=== PATIENT | male | born 1960 | race African-American/Black ===

== ENCOUNTER → 2018-10-10 | Outpatient (CLI) | payer OTHER ==
[~2018-10-10] MED LIST: AMARYL2 MG PO; BAYER CHEWABLE81 MG PO; GLUCOPHAGE1000 MG PO; LISINOPRIL2.5 MG PO; NORCO 5-325 TA1 EACH PO; PROAIR HFA8.5 GM IH; TUSSIONEX PENN473 ML PO; VITAMINC500 PO
== END ==
LOC: ULTRA 11:14
DX: E11.621 Type 2 diabetes mellitus with foot ulcer (principal); I73.9 Peripheral vascular disease, unspecified; L97.521 Non-pressure chronic ulcer of other part of left foot limited to breakdown of skin; F17.200 Nicotine dependence, unspecified, uncomplicated

== ENCOUNTER 2018-10-15 12:25 | Inpatient (IN) | payer OTHER ==
[~2018-10-15] VITALS: Ht 180.3 cm; Wt 83.8 kg
[2018-10-15] VITALS (11 sets, daily range): BP systolic 125–151; BP diastolic 78–93
[2018-10-15 12:58] LABS: ABSOLUTE NEUTROPHILS 10.1 thou/uL (1.4-8.2); BASOPHILS 0.7 % (0.0-2.0); EOSINOPHILS 2.3 % (0.0-3.0); HEMATOCRIT 46.2 % (42.0-52.0); HEMOGLOBIN 15.4 gm/dL (14.0-18.0); LYMPHOCYTES 19.3 % (24.0-44.0); MCH 30.7 pg (26.0-34.0); MCHC 33.3 g/dL (28.0-37.0); MCV 92.3 fL (80.0-100.0); PLATELET COUNT 252 thou/uL (150-400); POLYS 71.7 % (36.0-66.0); RDW 13.4 % (10.5-14.5); WBC 14.1 thou/uL (4.0-11.0)
[2018-10-15 13:11] LABS: CALCIUM 9.9 mg/dL (8.5-10.1); CREATININE 1.6 mg/dL (0.7-1.3)
[2018-10-15 13:20] LABS: TROPONIN-I 0.25 ng/mL (<0.06)
[2018-10-15 14:44] LABS: CHOLESTEROL 191 mg/dL (<200); HDL CHOLESTEROL 40 mg/dL (>40); LDL CHOLESTEROL 119 mg/dL (<100); TC:HDL 4.8 Ratio (Not establshd); TRIGLYCERIDE 162 mg/dL (<150); VLDL 32 mg/dL (<40)
--- NOTE | 2018-10-15 20:37 | CATHLAB ---
[facility] [address] [place] [address] INVASIVE PROCEDURE REPORT Name: KANCHAN LEE Room #: 218-P ADM IN M.R.#: [id number] Admission: 10/15/18 Attend Phys: Farhana Gloria Discharge: Date of : 58 Date of Service: 10/15/182036 Report #: [id number] THIS REPORT FOR: //name// APPROVED REPORT Study performed: 10/15/2018 14:41:26 Patient Details Patient Status: In-Patient Room #: The patient is a 58 year-old male Event Personnel Uriel Garcia Low Emission Automobile Designer, Jaspreet Swanson RN RN, Kirsty Gaston Monitor, Karma Gonzalez Procedures Performed Art Access - R femoral artery* 55571 Initial Mod Sed Same Phys/QHP Gr5y 304730 22617 Mod Sed Same Phys/QHP Ea 804624 Left Heart Cath w/or w/o Coronaries [id number] [facility] Hemostasis w/ Mynx, supervision of conscious sedation Indication Non-STEMI Procedure Narrative The patient was brought urgently to the Cardiac Catheterization Laboratory and was prepped and draped in a sterile manner. The Right Groin^ was infiltrated with 1% Lidocaine subcutaneous anesthesia. A PINNACLE 6FR Sheath #[id number] sheath was inserted into the RFA^. Coronary angiography was performed using coronary diagnostic catheters. The right coronary system was accessed and visualized with a JR 4 catheter. The left coronary system was accessed and visualized with a JL 4 catheter. The left ventricle was accessed and visualized with a JR 4 catheter. Left ventricular/Aortic Valve gradient assessed via catheter pullback. Closure device was deployed with a 6 Fr Mynx. The patient tolerated the procedure well and there were no complications associated with the procedure. There was no hematoma. Intraoperative Conscious Sedation Sedation start time: 15:16 Case end Time: 15:40 Versed 1 mg Fluoro Time: 2.24 minutes [facility] [employer] [address] INVASIVE PROCEDURE REPORT Name: KANCHAN LEE Room #: 218-P [facility] IN M.R.#: [id number] Admission: 10/15/18 Attend Phys: Farhana Gloria Discharge: Date of : 58 Date of Service: 10/15/182036 Report #: [id number] Dose: DAP 1788.00 cGycm2 257 mGy Contrast Type and Amount: Omnipaque 110 ml Coronary Angiography The patient's coronary anatomy is left dominant. Diagnostic Cath Left Main Normal origin moderate to large caliber bifurcates left anterior descending left circumflex free of high-grade disease LAD Moderate caliber vessel which courses in the anterior interventricular sulcus. It gives rise to a first septal hydro excavation operator which is free of high-grade disease. First diagonal branch has a 70% ostial lesion at an obtuse takeoff. The LAD then continues in the mid section where there appears to be a myocardial bridge which is not flow-limiting. The vessel then continues on in a tortuous pattern terminated post-rest left ventricle. Diagonal 1 Moderate caliber vessel with a 70% ostial lesion which is not flow-limiting. The angulation of the take off is quite perpendicular to the LAD proper Circumflex Monitor large-caliber vessel coursing the AV groove posteriorly giving rise to numerous marginal branches. There is a region of approximately 10% tubular narrowing in the midportion. The vessel then continues posteriorly supplying posterior wall posterior descending artery. OM1 Moderate caliber vessel without significant high-grade lesion OM2 Small-caliber vessel is significant high-grade lesion L PDA Small moderate caliber vessel without significant high-grade lesion Right Coronary Small-caliber vessel normal origin which is diffusely diseased proximally. There is a 95% or greater focal narrowing present. It then reconstitutes with her 60-70% lesions. The vessel then bifurcates at the acute margin and terminates as a small nondominant vessel Left Ventriculography Left Ventriculography was not performed. Hemodynamics The aortic pressure is 112/68 mmHg with a mean of 81 mmHg. The left ventricular pressure is 106/3 mmHg with a mean of mmHg. The left ventricular end diastolic pressure is 9 mmHg. Conclusion 1. Coronary disease, single-vessel [facility] [address] [place] [address] INVASIVE PROCEDURE REPORT Name: KANCHAN LEE Room #: 218-P ADM IN M.R.#: [id number] Admission: 10/15/18 Attend Phys: Farhana Gloria Discharge: Date of : 58 Date of Service: 10/15/182036 Report #: [id number] 2. Abnormal hemodynamics with elevated liver ventricular end-diastolic pressures Recommendations Cardiac Risk Reduction Program [facility] Medical Therapy Medical Therapy <ELECTRONICALLY SIGNED> By: Uriel Garcia MD 10/15/182036 36 36 Uriel Garcia MD /INF
--- NOTE | 2018-10-15 21:23 | NUR ---
ASSUMED CARE OF PT AT 1600. PT A&OX4, ON BEDREST POST HEART CATH (NO INTERVENTIONS). PT'S RIGHT GROIN SITE C/D/I, NO BLEEDING, NO HEMATOMA. PT COMPLAINED OF CHEST PAIN AND DR. PHILIPPE NOTIFIED WHEN HE WAS ROUNDING ON UNIT. PT GIVEN OXYGEN, MORPHINE, INCREASED NITROGLYCERIN DRIP AND PT STATED THAT PAIN WAS A 4 OUT 10.
[2018-10-16] VITALS (9 sets, daily range): BP systolic 96–133; BP diastolic 55–75
[2018-10-16 01:05] LABS: HEMATOCRIT 39.7 % (42.0-52.0); MCH 30.6 pg (26.0-34.0); MCHC 33.4 g/dL (28.0-37.0); MCV 91.7 fL (80.0-100.0); RBC 4.32 mil/uL (4.50-6.00); RDW 13.6 % (10.5-14.5); WBC 11.7 thou/uL (4.0-11.0)
[2018-10-16 01:11] LABS: HEMOGLOBIN 13.2 gm/dL (14.0-18.0)
[2018-10-16 01:43] LABS: CALCIUM 8.7 mg/dL (8.5-10.1); CREATININE 1.2 mg/dL (0.7-1.3)
[2018-10-16 01:44] LABS: TROPONIN-I 3.39 ng/mL (<0.06)
--- NOTE | 2018-10-16 04:15 | NUR ---
ASSUMED PT CARE AT 1900. A/OX4, VITAL SIGNS STABLE, ASSESSMENT CHARTED. PT COMPLAINED OF CHEST PAIN RATED AT 3-5 INTERMITTENTLY THROUGH THE NIGHT. PT GIVEN 2L O2, MORPHINE. PT ON HEPARIN AND NITROGLYCERINE DRIP. TOLERTAEING APPROPRIATELY. EKG DONE AT ABOUT 0100, NSR DETECTED. PT RESTED WELL THROUGH THE NIGHT. PROGRESSING TOWARD PLAN OF CARE. WILL CONTINUE TO MONITOR.
--- NOTE | 2018-10-16 08:34 | EKG ---
[address] [place] [address] ELECTROCARDIOGRAM REPORT Name: KANCHAN LEE Room #: 218-P ADM IN M.R.#: [id number] Admission: 10/15/18 Attend Phys: Farhana Sutton Discharge: Date of : 58 Report #: [id number] THIS REPORT FOR: //name// [facility] ED Test Date: 2018-10-15 Test Time: 12:34:56 Pat Name: KANCHAN LEE Department: Room: 218 Gender: M Senior Sales Operations Manager: CHELLE : 1960 Requested By: Clemente Ferguson Order Number: [id number] MD: Zeeshan Ryder Measurements Intervals [place] Rate: 95 P: 72 [place]: 124 QRS: 48 QRSD: 82 T: 30 QT: 339 QTc: 426 Interpretive Statements Sinus rhythm No significant abnormality Compared to ECG 05/25/2014 04:24:39 No significant changes Electronically Signed On 10-16-2018 8:34:06 TRAILER TECHNICIAN by Zeeshan Ryder [email or web address] <ELECTRONICALLY SIGNED> By: Zeeshan Ryder MD, [facility] 10/16/18 0834 1234 1234 Zeeshan Ryder MD, FACC /EPI
--- NOTE | 2018-10-16 08:35 | EKG ---
[address] [place] [address] ELECTROCARDIOGRAM REPORT Name: KANCHAN LEE Room #: 218-P ADM IN M.R.#: [id number] Admission: 10/15/18 Attend Phys: Farhana Sutton Discharge: Date of : 58 Report #: [id number] THIS REPORT FOR: //name// [facility] ED Test Date: 2018-10-15 Test Time: 14:06:19 Pat Name: KANCHAN LEE Department: Room: 218 Gender: M Leasing Property Manager: ADALGISA : 1960 Requested By: Clemente Ferguson Order Number: [id number] MD: Zeeshan Ryder Measurements Intervals [place] Rate: 95 P: 72 [place]: 128 QRS: 56 QRSD: 80 T: 26 QT: 341 QTc: 429 Interpretive Statements Sinus rhythm No significant abnormality Compared to ECG 05/25/2014 04:24:39 No significant change was found Electronically Signed On 10-16-2018 8:35:10 PROBATION AND PAROLE OFFICER by Zeeshan Ryder [email or web address] <ELECTRONICALLY SIGNED> By: Zeeshan Ryder MD, [facility] 10/16/18 0835 1406 1406 Zeeshan Ryder MD, FACC /EPI
--- NOTE | 2018-10-16 08:38 | EKG ---
[address] [address] ELECTROCARDIOGRAM REPORT Name: KANCHAN LEE Room #: 218-P ADM IN M.R.#: [id number] Admission: 10/15/18 Attend Phys: Farhana Sutton Discharge: Date of : 58 Report #: [id number] THIS REPORT FOR: //name// [facility] Test Date: 2018-10-16 Test Time: 02:19:09 Pat Name: KANCHAN LEE Department: Room: 218 P Gender: M Assayer: MISSY : 1960 Requested By: Farhana Sutton Order Number: [id number] MD: Zeeshan Ryder Measurements Intervals [place] Rate: 73 P: 50 ND: 136 QRS: 57 QRSD: 84 T: 30 QT: 390 QTc: 430 Interpretive Statements Sinus rhythm No significant abnormality Compared to ECG 05/25/2014 04:24:39 No significant changes Electronically Signed On 10-16-2018 8:38:01 SALES SERVICE TECHNICIAN by Zeeshan Ryder [email or web address] <ELECTRONICALLY SIGNED> By: Zeeshan Ryder MD, [facility] 10/16/18 0838 0219 8 Zeeshan Ryder MD, FACC /EPI
--- NOTE | 2018-10-16 09:48 | 2DMMODE ---
[facility] [address] [place] [address] 2 D/M-MODE ECHOCARDIOGRAM Name: KANCHAN LEE Room #: 218-P ADM IN M.R.#: [id number] Admission: 10/15/18 Attend Phys: Farhana Gloria Discharge: Date of : 58 Date of Service: 10/16/18 0948 Report #: [id number] THIS REPORT FOR: //name// APPROVED REPORT Study performed: 10/16/2018 09:08:46 EXAM: Limited 2D, Doppler, and color-flow Echocardiogram Patient Location: Bedside Room #: 218 Status: routine BSA: 2.04 HR: 66 bpm BP: 133/75 mmHg Rhythm: NSR Other Information Study Quality: Adequate Indications Limited echo for CP, NSTEMI. Hx: HTN, HLP, DM, tob 2D Dimensions IVSd: 10.91 (7-11mm) LVDd: 44.04 mm PWd: 10.80 (7-11mm) Ascending Ao: 34.37 (22-36mm) LVDs: 28.93 (25-40mm) Aortic Root: 32.39 mm Aortic Valve AoV Peak Jon.: 1.22 m/s AO Peak Gr.: 5.93 mmHg LVOT Max P.63 mmHg LVOT Max V: 0.95 m/s Mitral Valve E/A Ratio: 1.4 MV Decel. Time: 209.00 ms MV E Max Jon.: 0.92 m/s MV A Jno.: 0.68 m/s MV PHT: 60.61 ms IVRT: 73.82 ms Pulmonary Vein P Vein S: 0.42 m/s P Vein A: 0.23 m/s P Vein D: 0.39 m/s P Vein A Dur.: 133.8 msec P Vein S/D Ratio: 1.08 [facility] [place] [address] 2 D/M-MODE ECHOCARDIOGRAM Name: [facility] Room #: 218-P ADM IN M.R.#: [id number] Admission: 10/15/18 Attend Phys: Farhana Gloria Discharge: Date of : 58 Date of Service: 10/16/18 0948 Report #: [id number] Tricuspid Valve TR Peak Jon.: 1.86 m/s RAP Estimate: 5.00 mmHg TR Peak Gr.: 13.86 mmHg Left Ventricle The left ventricle is normal size. There is normal LV segmental wall motion. There is normal left ventricular wall thickness. Left ventricular systolic function is normal. LVEF is 55%. Moderate diastolic dysfunction is present (pseudonormal filling). Right Ventricle The right ventricle is normal size. mild hypokinesis of the RV. Atria The left atrium size is normal. The right atrium size is normal. Aortic Valve The Aortic valve is sclerotic. Very eccentric turbulent flow noted only on short axis, not well characterized There is no aortic valvular stenosis. Mitral Valve The mitral valve is normal in structure. There is no mitral valve regurgitation noted. No evidence of mitral valve stenosis. Tricuspid Valve The tricuspid valve is normal in structure. Trace tricuspid regurgitation. Estimated PAP is 20mmHg. Great Vessels The aortic root is normal in size. The ascending aorta is normal in size. IVC is normal in size and collapses >50% with inspiration. Pericardium There is no pericardial effusion. <Conclusion> The left ventricle is normal size. LVEF is 55%. The right ventricle is normal size. mild hypokinesis of the RV. The Aortic valve is sclerotic. [facility] [address] [place] [address] 2 D/M-MODE ECHOCARDIOGRAM Name: [facility] Room #: 218-P ADM IN M.R.#: [id number] Admission: 10/15/18 Attend Phys: Farhana Gloria Discharge: Date of : 58 Date of Service: 10/16/1848 Report #: [id number] Very eccentric turbulent flow noted only on short axis, not well characterized The mitral valve is normal in structure. The tricuspid valve is normal in structure. Trace tricuspid regurgitation. Estimated PAP is 20mmHg. There is no pericardial effusion. <ELECTRONICALLY SIGNED> By: Uriel Garcia MD 10/16/1848 09 Uriel Garcia MD /MANNY
--- NOTE | 2018-10-16 16:57 | NUR ---
ASSUMED CARE OF PT AT SHIFT CHANGE. ASSESSMENTS CHARTED. MEDS GIVEN PER NOV. PT AOX4. VSS, C/O CHEST PAIN THIS AM 11/04, CARDIOLOGY AWARE, PLANNED FOR A CATH TODAY BUT CANCELLED. PT HAS NOT C/O CHEST PAIN SINCE. O2 SATS WNL ON 2L O2. NO S/SX OF CARDIAC OR RESP DISTRESS NOTED. FAMILY VISITED WITH PT TODAY. NITRO AND HEPARIN DRIPS CONTINUE PER PROTOCOL. PT CURRENTLY RESTING COMFORTABLY IN BED. NO NEEDS AT THIS TIME. WILL CONTINUE TO MONITOR AND FOLLOW POC.
[2018-10-17] VITALS (7 sets, daily range): BP systolic 98–127; BP diastolic 53–74
[2018-10-17 05:05] LABS: CALCIUM 8.6 mg/dL (8.5-10.1); POTASSIUM 4.3 mmol/L (3.5-5.1)
[2018-10-17 05:15] LABS: TROPONIN-I 1.26 ng/mL (<0.06)
--- NOTE | 2018-10-17 08:10 | EKG ---
[address] [place] [address] ELECTROCARDIOGRAM REPORT Name: KANCHAN LEE Room #: 218-P ADM IN M.R.#: [id number] Admission: 10/15/18 Attend Phys: Farhana Sutton Discharge: Date of : 58 Report #: [id number] THIS REPORT FOR: //name// [facility] Test Date: 2018-10-17 Test Time: 07:08:55 Pat Name: KANCHAN LEE Department: Room: 218 P Gender: M Javascript Web Developer: JIMMIE : 1960 Requested By: Marie Matos Order Number: [id number] MD: Zeeshan Ryder Measurements Intervals [place] Rate: 66 P: 9 [place]: 128 QRS: 52 QRSD: 84 T: 28 QT: 380 QTc: 399 Interpretive Statements Sinus rhythm Normal tracing Compared to ECG 10/16/2018 02:19:09 No significant changes Electronically Signed On 10-17-2018 8:10:28 INVESTMENT COUNSELOR by Zeeshan Ryder [email or web address] <ELECTRONICALLY SIGNED> By: Zeeshan Ryder MD, [facility] 10/17/18 0810 0708 7 Zeeshan Ryder MD, FACC /EPI
--- NOTE | 2018-10-17 08:42 | NUR ---
PT. AOX4; NO C/O PAIN DURING THE NIGHT; ABLE TO REST; C/O CHEST PAIN DURING THE MORNING; NITRATE DRIP TITRATE TO 15; EKG PERFORMED PER ORDER; ASSESSMENT CHARGED; FOLLOWING POC.
--- NOTE | 2018-10-17 18:27 | NUR ---
ASSESSMENT DOCUMENTED. PT ALERT AND ORIENTED. DENIED HAVING CHAIN PAIN THIS SHIFT. NITRO AND HEPARIN DRIP D/C. PT AMBULATED NUMEROUS TIMES THIS SHIFT. PROGRESSING WELL TOWARD DISCHARGE GOAL. WILL CONTINUE TO MONITOR.
--- NOTE | 2018-10-18 02:05 | NUR ---
ASSESSMENT DOCUMENTED.PT BEEN RESTING IN NO ACUTE DISTRESS.DENIES ANY EPISODE OF CHEST PAIN THIS SHIFT.VSS.POC IS TO DISCHARGE TODAY TO HOME.NO CONCERNS VOICED AT THIS TIME.WILL CONT TO MONITOR PER POC.
[2018-10-18 04:50] VITALS: BP 111/66
[2018-10-18 08:21] VITALS: BP 124/64
[2018-10-18] MEDS ORDERED: CLOPIDOGREL75 MG PO (09:00)
[2018-10-18] MEDS ORDERED: IMDUR 60 MG TAB60 M1 PO (09:00)
[2018-10-18] MEDS ORDERED: NICOTINE TRANSD21 M1 TRANSDERM (09:00)
[2018-10-18] MEDS ORDERED: ATORVASTATIN CA40 MG PO (09:00)
[2018-10-18] MEDS ORDERED: METOPROLOL SUCC25 M1 PO (09:01)
[2018-10-18 10:21] VITALS: BP 124/64
[2018-10-18 12:22] VITALS: BP 119/75
--- NOTE | 2018-10-18 13:42 | NUR ---
Pt dcing home today. Pt is a&ox4 and lives indep with his spouse. He reports that he is on FMLA and will f/u with his pcp Dr.Michelle De Souza next week to assist with any ongoing paperwork. No dc planning needs indicated. Pt has health insurance in place for f/u care and scripts.
--- NOTE | 2018-10-18 16:07 | NUR ---
ASSESSMENT DOCUMENTED. VSS. PT ALERT AND ORIENTED. DENIED HAVING PAIN OR DISCOMFORT. REPORT FEELING MUCH BETTER TODAY. SEEN BY DR NOGUERA AND DR. PHILIPPE. ORDERS GIVEN TO DISCHARGE PT TO HOME. PATIENT VERBALISED UNDERSTANDING. PT LEFT THE FACILITY ACCOMPANIED BY THE .
== END 2018-10-18 15:07 | disposition home or self-care (01) | DRG 280 ==
LOC: ER 12:25 → EROBS 14:27 → 2N 14:27 → EROBS 14:57 → 2N 16:07 → ENTRNSPT 10-18 14:54 → EDTRNSPTSTS 10-18 15:02 → 2N 10-18 15:07
PROVIDERS: Emergency Medicine; Internal Medicine; Nurse Practitioner Adult Health; ADMIT Hospitalist
PROC: 4A023N7 Measurement of Cardiac Sampling and Pressure, Left Heart, Percutaneous Approach (ICD-10-PCS; principal; 2018-10-15)
PROC: B2111ZZ Fluoroscopy of Multiple Coronary Arteries using Low Osmolar Contrast (ICD-10-PCS; principal; 2018-10-15)
DX: I21.4 Non-ST elevation (NSTEMI) myocardial infarction (principal); N17.0 Acute kidney failure with tubular necrosis; E11.9 Type 2 diabetes mellitus without complications; I25.110 Atherosclerotic heart disease of native coronary artery with unstable angina pectoris; I10 Essential (primary) hypertension; E78.5 Hyperlipidemia, unspecified; E78.00 Pure hypercholesterolemia, unspecified; F17.210 Nicotine dependence, cigarettes, uncomplicated; Z86.73 Personal history of transient ischemic attack (TIA), and cerebral infarction without residual deficits; Z79.82 Long term (current) use of aspirin; Z79.84 Long term (current) use of oral hypoglycemic drugs; Z79.899 Other long term (current) drug therapy; Z71.6 Tobacco abuse counseling; Z28.21 Immunization not carried out because of patient refusal
CPT/HCPCS: 10081

== ENCOUNTER 2020-07-16 14:40 | Emergency (ER) | payer OTHER ==
[~2020-07-16] VITALS: Ht 180.3 cm; Wt 86.2 kg
[~2020-07-16 14:40] MED LIST changes: +ATORVASTATIN CA40 MG PO; +CLOPIDOGREL75 MG PO; +IMDUR 60 MG TAB60 M1 PO; +METOPROLOL SUCC25 M1 PO; +NICOTINE TRANSD21 M1 TRANSDERM
[2020-07-16] MEDS ORDERED: ZINC SULFATE220 MG PO (14:58)
[2020-07-16 16:56] LABS: HEMOGLOBIN 14.3 gm/dL (14.0-18.0); MCH 31.4 pg (26.0-34.0); MCHC 33.2 g/dL (28.0-37.0); MCV 94.5 fL (80.0-100.0); RBC 4.55 mil/uL (4.50-6.00); RDW 14.1 % (10.5-14.5); WBC 15.1 thou/uL (4.0-11.0)
[2020-07-16 17:05] LABS: ANION GAP 7 mmol/L (7-16); BUN 12 mg/dL (7-18); CALCIUM 9.4 mg/dL (8.5-10.1); CHLORIDE 104 mmol/L (98-107); CO2 24 mmol/L (21-32); CREATININE 1.1 mg/dL (0.7-1.3); GLUCOSE 131 mg/dL (74-106); POTASSIUM 5.7 mmol/L (3.5-5.1); SODIUM 135 mmol/L (136-145)
[2020-07-16 17:14] LABS: TROPONIN-I <0.06 ng/mL (<0.06)
[2020-07-16 20:00] VITALS: BP 147/89
[2020-07-16 20:01] LABS: CALCIUM 8.8 mg/dL (8.5-10.1); CREATININE 0.9 mg/dL (0.7-1.3); POTASSIUM 4.7 mmol/L (3.5-5.1)
[2020-07-16] MEDS ORDERED: MIRALAX119 GM PO (20:18)
--- NOTE | 2020-07-17 07:41 | EKG ---
[facility] [place] [address] ELECTROCARDIOGRAM REPORT Name: KANCHAN LEE Room #: DEP MElizabethR.#: [id number] Admission: 07/16/20 Attend Phys: Discharge: 07/16/20 Date of : 58 Report #: [id number] THIS REPORT FOR: cc: Maria Del Carmen De Souza MD, Michelle R. MD Santiago, Patrick MD [facility] ~ THIS REPORT FOR: //name// [facility] ED Test Date: 2020-07-16 Test Time: 17:06:10 Pat Name: KANCHAN LEE Department: Room: Gender: Electrician Third: Vicki Hayden : 1960 Requested By: Abbe Wade Order Number: [id number] MD: Horacio Garcia Measurements Intervals [place] Rate: 77 P: 75 CT: 123 QRS: 47 QRSD: 82 T: 27 QT: 371 QTc: 420 Interpretive Statements Sinus rhythm J point elevation, anterior leads Baseline wander in lead(s) V5 Compared to ECG 10/17/2018 07:08:55 ST (T wave) deviation now present Electronically Signed On 07-17-2020 7:41:37 CDT by Horacio Garcia [email or web address] <ELECTRONICALLY SIGNED> By: Horacio Garcia MD, FACC 07/17/20 0741 1706 1706 Horacio Garcia MD, [facility] /EPI
== END 2020-07-16 20:20 | disposition home or self-care (01) ==
LOC: ER 14:40
PROVIDERS: Emergency Medicine
DX: R55 Syncope and collapse (principal); I10 Essential (primary) hypertension; E11.9 Type 2 diabetes mellitus without complications; F17.210 Nicotine dependence, cigarettes, uncomplicated; E78.5 Hyperlipidemia, unspecified; Z79.02 Long term (current) use of antithrombotics/antiplatelets; Z79.82 Long term (current) use of aspirin; Z79.84 Long term (current) use of oral hypoglycemic drugs; Z79.899 Other long term (current) drug therapy